=== PATIENT | female | born 2000 | race Caucasian/White ===

== ENCOUNTER 2022-07-05 20:26 | Inpatient (IN) ==
[2022-07-05] MEDS ORDERED: miSOPROStoL 200 MCG TABLET RECTAL PRN (20:54)
[2022-07-05] MEDS ORDERED: ONDANSETRON 4 MG/2 ML VIAL IV PRN (20:54)
[2022-07-05] MEDS ORDERED: LACTATED RINGERS 1,000 ML IV ONE (20:54)
[2022-07-05] MEDS ORDERED: CARBOPROST TROMETHAMINE 250 MCG/ML AMP IM PRN (20:54)
[2022-07-05] MEDS ORDERED: OXYTOCIN/LR 20 UNIT/1,000 ML BAG IV ONE (20:54)
[2022-07-05] MEDS ORDERED: TRANEXAMIC ACID 1,000 MG in SODIUM CHLORIDE 0.9% 100 ML IV PRN (20:54)
[2022-07-05] MEDS ORDERED: METHYLERGONOVINE 0.2 MG/1 ML AMP IM PRN (20:54)
[2022-07-05] MEDS ORDERED: BUTORPHANOL 2 MG/ML VIAL IV PRN (20:54)
[2022-07-05] MEDS ORDERED: LACTATED RINGERS 1,000 ML IV SCH (21:00)
[2022-07-05 21:29] LABS: Basophils % 0.3 % (0.0-0.8); Eosinophils # 0.1 10*3/uL (0.0-0.87); Eosinophils % 0.9 % (0.00-10.9); Hematocrit 34.5 VOL% (35.7-47.0); Hemoglobin 11.9 GM/DL (12.0-16.0); Immature Granulocytes % 0.7 %; Immature Granulocytes Absolute 0.07 #; Lymphocytes % 19.9 % (21.3-54.2); Mean Corpuscular HGB Conc 34.5 GM/DL (32-36); Mean Corpuscular Volume 88.9 FL (87-102); Mean Platelet Volume 8.8 FL (9.6-12.0); Monocytes # 0.6 10*3/uL (0.11-0.8); Monocytes % 6.3 % (1.7-12.7); Neutrophils % 71.9 % (38.7-73.9); Platelet Count 317 T/CUMM (130-400); Red Blood Count 3.88 MC/CUMM (3.8-5.5); Red Cell Distribution Width 13.1 % (9.3-17.3); White Blood Count 10.1 T/CUMM (4-12)
[2022-07-06] MEDS: BUTORPHANOL 1 MG/ML VIAL IV PRN ×2 (14:52→18:03)
[2022-07-06] MEDS ORDERED: PROMETHAZINE 25 MG/1 ML VIAL IM ONE (18:37)
[2022-07-06] MEDS ORDERED: LACTATED RINGERS 1,000 ML IV ONE (18:37)
[2022-07-06] MEDS ORDERED: FAMOTIDINE 20 MG/2 ML VIAL IV ONE (18:37)
[2022-07-06] MEDS ORDERED: NALOXONE 0.4 MG/ML VIAL IV PRN (18:37)
[2022-07-06] MEDS ORDERED: hydrOXYzine HCL 25 MG/1 ML VIAL IM PRN (18:37)
[2022-07-06] MEDS ORDERED: diphenhydrAMINE 50 MG/1 ML VIAL IV PRN ×2 (18:37)
[2022-07-06] MEDS ORDERED: CITRIC ACID/SODIUM CITRATE 30 ML UDCUP PO ONE (18:37)
[2022-07-06] MEDS ORDERED: ePHEDrine 50 MG/ML VIAL IV PRN (18:37)
[2022-07-06] MEDS ORDERED: fentaNYL 2 MCG/ROPIV 0.2% EPID 100 ML EPIDURAL SCH (19:00)
[2022-07-06] MEDS ORDERED: METHYLERGONOVINE 0.2 MG/1 ML AMP ONE (21:48)
[2022-07-06] MEDS ORDERED: SODIUM CHLORIDE 0.9% 0 ML IV ONE (21:48)
[2022-07-06] MEDS ORDERED: CARBOPROST TROMETHAMINE 250 MCG/ML AMP IM ONE (21:48)
[2022-07-06] MEDS ORDERED: TRANEXAMIC ACID 1,000 MG/10 ML VIAL ONE (21:48)
[2022-07-06] MEDS ORDERED: miSOPROStoL 200 MCG TABLET ONE (21:48)
[2022-07-06] MEDS ORDERED: OXYTOCIN/LR 20 UNIT/1,000 ML BAG IV ONE (22:31)
[2022-07-06 23:06] LABS: Cord Venous Blood HCO3 22.7 MMOL/L; Cord Venous Blood PCO2 44.2 MMHG; Cord Venous Blood PO2 29.4
[2022-07-07] MEDS ORDERED: LANOLIN 50% CREAM 0.3 OZ TUBE TOP PRN (01:31)
[2022-07-07] MEDS ORDERED: WITCH HAZEL PADS 100/JAR TOP PRN (01:31)
[2022-07-07] MEDS ORDERED: ONDANSETRON 4 MG/2 ML VIAL IV PRN (01:31)
[2022-07-07] MEDS ORDERED: RHO(D) IMMUNE GLOBULIN 300 MCG SYRINGE IM ONE (01:31)
[2022-07-07] MEDS ORDERED: BENZOCAINE 20%/MENTHOL 0.5% SPRAY 56 GM CAN TOP PRN (01:31)
[2022-07-07] MEDS ORDERED: HYDROCORTISONE 2.5% RECTAL CREAM 30 GM TUBE TOP PRN (01:31)
[2022-07-07] MEDS ORDERED: OXYTOCIN/LR 20 UNIT/1,000 ML BAG IV ONE (01:31)
[2022-07-07] MEDS ORDERED: BISACODYL 10 MG SUPP RECTAL PRN (01:31)
[2022-07-07] MEDS ORDERED: ACETAMINOPHEN 325 MG TABLET PO PRN (01:31)
[2022-07-07] MEDS ORDERED: MEASLES/MUMPS/RUBELLA VACCINE 0.5 ML VIAL SUBCUT ONE (01:31)
[2022-07-07] MEDS ORDERED: DIPH/TET/ACEL PERT BOOSTER VACCINE 0.5 ML VIAL IM ONE (01:45)
[2022-07-07] MEDS: IBUPROFEN 800 MG TABLET PO PRN ×3 (02:40→18:04)
[2022-07-07] MEDS: oxyCODONE/ACETAMINOPHEN 5-325 MG TABLET PO PRN ×4 (02:41→18:03)
[2022-07-07 06:16] LABS: Basophils # 0.1 10*3/uL (0.0-0.2); Basophils % 0.3 % (0.0-0.8); Eosinophils # 0.1 10*3/uL (0.0-0.87); Eosinophils % 0.3 % (0.00-10.9); Hematocrit 31.3 VOL% (35.7-47.0); Hemoglobin 10.9 GM/DL (12.0-16.0); Immature Granulocytes % 0.7 %; Immature Granulocytes Absolute 0.13 #; Lymphocytes # 1.7 10*3/uL (1.4-4.0); Lymphocytes % 9.3 % (21.3-54.2); Mean Corpuscular HGB Conc 34.8 GM/DL (32-36); Mean Corpuscular Volume 89.4 FL (87-102); Monocytes # 1.4 10*3/uL (0.11-0.8); Monocytes % 7.4 % (1.7-12.7); Platelet Count 277 T/CUMM (130-400); Red Cell Distribution Width 12.9 % (9.3-17.3); White Blood Count 18.8 T/CUMM (4-12)
[2022-07-07] MEDS: DOCUSATE SODIUM 100 MG CAPSULE PO SCH ×2 (09:04→21:06)
[2022-07-08] MEDS: oxyCODONE/ACETAMINOPHEN 5-325 MG TABLET PO PRN ×2 (01:24→07:48)
[2022-07-08] MEDS: IBUPROFEN 800 MG TABLET PO PRN (04:00)
[2022-07-08 07:14] VITALS: BP 112/60
[2022-07-08] MEDS: DOCUSATE SODIUM 100 MG CAPSULE PO SCH ×2 (07:48→12:57)
[2022-07-08] MEDS ORDERED: DIPH/TET/ACEL PERT BOOSTER VACCINE 0.5 ML VIAL IM ONE (09:42)
== END 2022-07-08 12:25 | disposition home or self-care (01) | DRG 807 ==
LOC: N.LDOUT 20:26 → N.LD 20:26 → N.OB 07-07 01:07
PROVIDERS: ADMIT Specialist; ATTEND Specialist